=== PATIENT | female | born 1975 | race Caucasian/White ===

== ENCOUNTER 2025-01-30 10:36 | Emergency (ER) | payer OTHER, SELFPAY ==
--- NOTE | 2025-01-30 10:37 | ECG_ITS ---
Test Reason : cp Blood Pressure : */* mmHG Vent. Rate : 109 BPM Atrial Rate : 109 BPM P-R Int : 136 ms QRS Dur : 76 ms QT Int : 322 ms P-R-T Axes : 29 -5 65 degrees QTcB Int : 433 ms Sinus tachycardia Minimal voltage criteria for LVH, may be normal variant ( R in aVL ) Cannot rule out Anterior infarct , age undetermined Abnormal ECG No previous ECGs available Referred By: Generic ED Physician Electronically Signed By: HERBER GIL MD
[2025-01-30 10:43] VITALS: BP 181/97; PULSE 108; RESP 19; TEMP 36.6; O2SAT 99; BMI 55.3
[2025-01-30 11:08] LABS: MANUAL DIFF FLAG NO
[2025-01-30 11:11] LABS: Basophils Absolute Auto 0.1 X10*3/uL (0.0-0.2); Basophils Percent Auto 0.6 % (0-2); Eosinophils Absolute Auto 0.1 X10*3/uL (0.0-0.4); Eosinophils Percent Auto 0.7 % (0-4); Hematocrit 38.2 % (37.0-47.0); Hemoglobin 12.6 g/dl (12.0-16.0); Imm Gran Abs Auto 0.05 X10*3/uL (0.00-0.03); Imm Gran Pct Auto 0.4 % (0.0-0.4); Lymphocytes Absolute Auto 1.5 X10*3/uL (1.2-4.9); Lymphocytes Percent Auto 12.3 % (20-40); Mean Corpuscular Hemoglobin 28.4 pg (27.0-33.0); Mean Platelet Volume 8.9 fL (9.4-12.3); Monocytes Absolute Auto 0.6 X10*3/uL (0.1-1.2); Neutrophils Absolute Auto 9.8 x10*3/uL (2.0-8.3); Platelet Count 466 X10*3/uL (160-400); Red Blood Count 4.44 X10*6/uL (4.20-5.50); White Blood Count 12.1 X10*3/uL (4.8-10.8)
[2025-01-30 11:25] LABS: Anion Gap 13 (12-20); Blood Urea Nitrogen 12 mg/dL (9-16); Calcium 9.6 mg/dL (8.4-10.2); Carbon Dioxide 25 mmol/L (22-29); Chloride 103 mmol/L (96-108); Creatinine Clr Calc Pharmacy 138.6; Estimated Glomerular Filt Rate > 60; Glucose Random 122 mg/dL (60-115); Potassium 3.7 mmol/L (3.3-5.1); Sodium 137 mmol/L (135-145)
[2025-01-30 11:36] LABS: Troponin-I High Sensitivity < 2.7 ng/L (<3.5-17.0)
--- NOTE | 2025-01-30 12:00 | ED.GENADULT ---
HPI - General Adult General Chief complaint: Anxiety Stated complaint: panic attach, CP Time Seen by Provider: 01/30/25 11:50 Source: patient, RN notes reviewed and old records reviewed Mode of arrival: ambulatory Limitations: no limitations History of Present Illness ED Provider: Lesli [facility] narrative: Patient is a 49-year-old female with history of hypertension presenting to the emergency department with complaint of increased anxiety over the past 2 weeks. Reports increased stressors. States that she feels as though her whole body is vibrating and cannot avoid her intrusive thoughts. Today had a brief episode of squeezing chest pain which radiated to her upper back, and radiated down left arm. States pain only lasted a few seconds. History of anxiety in the past related to father's illness. Does not have a therapist in the community. Denies suicidal or homicidal ideation. States she is willing to speak with the care team regarding her symptoms. States that she has an IUD, is not on OCPs. Denies recent calf pain or swelling, recent travel. MD complaint: Anxiety, chest pain Onset (ago): week(s) Related Data Allergies Allergy/AdvReac Type Severity Reaction Status Date / Time No Known Allergies Allergy Verified 01/30/25 10:45 Review of Systems Review of Systems: As per HPI Yes all other systems are reviewed and are negative Constitutional: Constitutional: Reports as per HPI [facility] Social History Social History Smoked in Last 30 Days: No Use of substances other than those prescribed or required for medical reasons: No Advance Directives: No Advance Directives Information Provided: Yes Do you have a plan to hurt others: No Plan Patient : No Physical Exam ED Vital Signs: Vital Signs - 24 hr 01/30/25 10:43 01/30/25 14:17 Temperature 98 F Pulse Rate 108 H 80 Respiratory Rate 19 17 Blood Pressure 181/97 H 153/90 H Pulse Oximetry 99 100 Oxygen Delivery Method Room Air Room Air BMI result Body Mass Index 55.3 Vital signs have been reviewed and appear to be correct. Blood pressure elevated. Heart rate slightly tachycardic. Respiratory rate normal. Temperature normal. Oxygen saturation normal. Const General: cooperative, healthy appearing and no acute distress Nutritional Appearance: obese Orientation/consciousness: oriented to person, oriented to place, oriented to time and patient oriented x3 Limitations: no limitations HENMT Head: Yes normocephalic and Yes atraumatic Ears: external ears normal General nose exam: Normal external nose present Face and sinus: Yes face symmetric Mouth: oropharynx normal and moist mucous membranes Throat: Yes uvula midline Eyes Pupils: Equal, round and reactive pupils present Neck Neck: Yes normal visual inspection and Yes supple Resp Effort & Inspection: normal respiratory effort and able to speak in complete sentences Auscultation: clear to auscultation bilaterally Cardio Rate: regular rate Rhythm: regular rhythm Heart sounds: S1 normal heart sound present and S2 normal heart sound present GI Palpation (GI): Soft to palpation and nontender Auscultation: normoactive bowel sounds General: Yes no CVA tenderness Back/Spine/Pelvis Back: no CVA tenderness Skin General skin exam: elasticity normal and turgor normal Neuro General: oriented to person, oriented to place, oriented to time, patient oriented x3, moves all extremities, no focal motor deficits and CN's II-XI intact bilaterally Cranial nerves: Yes Equal, round and reactive pupils present Cognition (Neuro): normal cognition Extrem General: Yes full ROM, Yes no pedal edema and Yes no calf tenderness Psych Mental Status: mental status grossly normal Affect: normal affect Thought process: Normal thought process present Medications Administered Discontinued Medications Generic Name Dose Route Start Last Admin Trade Name Freq PRN Reason Stop Dose Admin Lorazepam 2 mg 01/30/25 12:18 01/30/25 12:29 Lorazepam 1 Mg Tablet PO 01/30/25 12:19 2 mg ONCE ONE Administration Medical Decision Making Medical Decision Making [facility] Narrative: Patient is a 49-year-old female with history of hypertension presenting to the emergency department with complaint of increased anxiety over the past 2 weeks. On exam patient is awake, A+Ox3, VS WNL, afebrile, normal neurological exam without focal deficits, physical exam findings as above. Given reported symptoms and physical exam findings, initial differential includes but is not limited to ACS, PE, anxiety, musculoskeletal pain. EKG shows sinus tachycardia. Labs notable for mild leukocytosis, no significant electrolyte abnormalities, negative troponin. Negative D-dimer, PE unlikely. Patient repeatedly expressing symptoms of anxiety. Patient medically cleared at this time for care team evaluation and placed on physician observation. Differential Diagnosis Differential Diagnoses: The differential diagnosis associated with the presentation includes As per MDM Admission/Observation Consideration of admission/observation: Escalation of care including admission/observation considered Patient would have been admitted to the hospital had their work up had any findings where hospital admission was appropriate and their clinical presentation warranted hospital admission. Consult Healthcare Provider Management of the patient was discussed with: Behavioral Health Provider Lab Data [facility] Lab Attestation statement: I reviewed the patient's lab results. As per MDM 01/30/25 10:52 01/30/25 10:52 Labs: Lab Results 01/30/25 01/30/25 Range/Units 10:52 13:29 WBC 12.1 H (4.8-10.8) X10*3/uL RBC 4.44 (4.20-5.50) X10*6/uL Hgb 12.6 (12.0-16.0) g/dl Hct 38.2 (37.0-47.0) % MCV 86.0 (80.0-98.0) fL MCH 28.4 (27.0-33.0) pg MCHC 33.0 (31.0-35.0) g/dl RDW 14.0 (11.0-16.0) % Plt Count 466 H (160-400) X10*3/uL MPV 8.9 L (9.4-12.3) fL Immature Gran % (Auto) 0.4 (0.0-0.4) % Neut % (Auto) 81.0 H (45-73) % Lymph % (Auto) 12.3 L (20-40) % Sawyer % (Auto) 5.0 (2-11) % Eos % (Auto) 0.7 (0-4) % Baso % (Auto) 0.6 (0-2) % Lymph # (Auto) 1.5 (1.2-4.9) X10*3/uL Sawyer # (Auto) 0.6 (0.1-1.2) X10*3/uL Eos # (Auto) 0.1 (0.0-0.4) X10*3/uL Baso # (Auto) 0.1 (0.0-0.2) X10*3/uL Abs Immat Gran (auto) 0.05 H (0.00-0.03) X10*3/uL Absolute Neuts (auto) 9.8 H (2.0-8.3) x10*3/uL Absolute Nucleated RBC 0.000 (0.0-0.012) X10*3/uL Nucleated RBC % (auto) 0.0 (0.0-0.2) /100WBC D-Dimer High Sensitivty < 150 NG/ML Sodium 137 (135-145) mmol/L Potassium 3.7 (3.3-5.1) mmol/L Chloride 103 (96-108) mmol/L Carbon Dioxide 25 (22-29) mmol/L Anion Gap 13 (12-20) BUN 12 (9-16) mg/dL Creatinine 0.69 (0.5-1.4) mg/dL Estim Creat Clear Calc 138.6 Estimated GFR > 60 Random Glucose 122 H (60-115) mg/dL Calcium 9.6 (8.4-10.2) mg/dL Troponin I High Sens < 2.7 (<3.5-17.0) ng/L Independent Interpretation I performed an independent interpretation of an: EKG (sinus tachycardia, t wave inversion in v1, v2, rate 109bpm, normal pr interval and qtc) External Record Review External record reviewed: Inpatient record, Office record and Outpatient record Discharge Plan Discharge Clinical Impression: Acute anxiety, Atypical chest pain Patient Disposition: Still a Patient Instructions: Anxiety (ED) Print Language: Maldivian
--- NOTE | 2025-01-30 12:10 | PC.NURSE ---
Pt comes to ED today from home with c/o chest pain that radiates to back and L arm. She reports an increase in her anxiety level from life stressors (work related.) She reports she was seen by her PCP who prescribed Buspar 5mg TID but has not had any relief. She reports a decreased appetite, nausea in AM, and occasional blurred vision. A&Ox3 VSS--BP elevated. Skin is warm and dry Breaths and speech are slow, even, and unlabored. Facial symmetry noted. Pt resting quietly with family at bedside. Awaiting dispo.
[2025-01-30] MEDS: LORazepam 1 MG TABLET 2 MG PO (12:29)
[2025-01-30 13:59] LABS: D Dimer High Sensitivity < 150 NG/ML
[2025-01-30 14:17] VITALS: BP 153/90; PULSE 80; RESP 17; O2SAT 100
[2025-01-30 19:43] VITALS: BP 138/87; PULSE 83; RESP 16; TEMP 36.7; O2SAT 100
[2025-01-30 22:32] VITALS: BP 137/76; PULSE 78; RESP 16; O2SAT 99
[2025-01-30 23:47] VITALS: BP 146/74; PULSE 81; RESP 20; TEMP 36.6; O2SAT 97
== END 2025-01-30 23:48 | disposition home or self-care (01) ==
PROVIDERS: Registered Nurse Emergency; Emergency Provider Emergency Medicine; PCP Internal Medicine
DX: F41.9 Anxiety disorder, unspecified (principal); R07.89 Other chest pain
CPT/HCPCS: 36415; 80048; 84484; 85025; 85379; 93005; 99283; 99285

== ENCOUNTER → 2025-01-30 10:37 | Outpatient (BNV) | payer OTHER, SELFPAY | PROVIDERS: Emergency Provider Emergency Medicine; PCP Internal Medicine; Visit Provider Internal Medicine Cardiovascular Disease | DX: R00.0 Tachycardia, unspecified (principal) | CPT/HCPCS: 93010 ==